=== PATIENT | female | born 1955 | race Caucasian/White ===

== ENCOUNTER 2019-11-23 22:28 | Emergency (ER) | payer OTHER, MEDICAID ==
[~2019-11-23] VITALS: Ht 170.2 cm; Wt 59.0 kg
[2019-11-23 22:35] VITALS: BP_SYST 143
--- NOTE | 2019-11-23 22:35 | NUR ---
Patient to ER bed 04 to gown for evaluation. Side rails up. Report given to BRITTANIE.
--- NOTE | 2019-11-23 22:40 | NUR ---
PT AAO AND AMBULATORY C/O BUG BITE TO LEFT HAND THAT OCCURRED THIS EVENING AND HAS BEEN SWELLING SINCE. PT DENIES ANY PAIN CURRENTLY.
--- NOTE | 2019-11-23 22:58 | NUR ---
Dr. Ferreira bedside for pt eval
--- NOTE | 2019-11-23 23:10 | NUR ---
Patient given written and verbal discharge instructions and verbalizes understanding. DR. DOMINIC WILLIS MD discussed with patient the results and treatment provided. Patient in stable condition. ID arm band removed. Rx of KEFLEX given. Patient educated on pain management and to follow up with PMD. Pain Scale 0/10. Opportunity for questions provided and answered. Medication side effect fact sheet provided.
[2019-11-23 23:29] VITALS: BP_SYST 143
== END 2019-11-23 23:10 | disposition home or self-care (01) ==
LOC: SED 22:28
DX: L03.114 Cellulitis of left upper limb (principal); I10 Essential (primary) hypertension; F17.200 Nicotine dependence, unspecified, uncomplicated; E78.5 Hyperlipidemia, unspecified
CPT/HCPCS: 99283